=== PATIENT | male | born 1995 | race Caucasian/White ===

== ENCOUNTER 2020-04-27 12:35 | Emergency (ER) | payer OTHER ==
[~2020-04-27] VITALS: Ht 172.7 cm; Wt 81.7 kg
[~2020-04-27 12:35] MED LIST: NOHOMEMEDICATIONS
[2020-04-27] MEDS ORDERED: APAP W/CODEINE1 TA2 PO (13:30)
[2020-04-27] MEDS ORDERED: MEDROLDOSEPACK PO (13:32)
[2020-04-27] MEDS ORDERED: NAPROSYN500 MG PO (13:32)
[2020-04-27 13:52] VITALS: BP 125/73
--- NOTE | 2020-04-28 07:57 | EKG ---
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
== END 2020-04-27 13:52 | disposition home or self-care (01) ==
LOC: M.ERS 12:35
DX: R07.9 Chest pain, unspecified (principal); R00.2 Palpitations